=== PATIENT | male | born 1965 | race Caucasian/White ===

== ENCOUNTER 2021-01-10 04:39 | Emergency (ER) | payer BC, OTHER ==
[2021-01-10] MEDS ORDERED: Ketorolac 15 MG/ML SDV IM ONE (05:20)
--- NOTE | 2021-01-10 05:22 | EDM.PDOC ---
ED HPI GENERAL MEDICAL PROBLEM - General Chief Complaint: General Stated Complaint: BODY ACHE/FEVER/CHILLS/HEADACHE Time Seen by Provider: 01/10/21 05:00 Source of Information: Reports: Patient History Limitations: Reports: No Limitations - History of Present Illness INITIAL COMMENTS - FREE TEXT/NARRATIVE: Patient is a 55-year-old male presenting to the emergency room with a chief complaint of body aches. Patient states he is otherwise healthy and takes no medications on a regular basis. States he has been sick since Monday. Reports symptoms of low-grade fevers and chills, body aches, sore/scratchy throat, dry cough, headache. Has been using Tylenol and ibuprofen with only some relief. He has not had the Covid or flu vaccine. Patient states he is not having any d ifficulty breathing, shortness of breath, chest pain. He comes in this morning because he feels like is not getting any better. He states his body aches are more severe this morning and "feels like he got run over by a truck". Generalized Pain Score (Numeric/FACES): 5 - Related Data Allergies Allergy/AdvReac Type Severity Reaction Status Date / Time No Known Allergies Allergy Verified 01/10/21 04:51 Home Meds: Home Meds . [No Known Home Meds] 01/10/21 [History] Past Medical History - Past Health History Medical/Surgical History: Denies Medical/Surgical History Social & Family History - Tobacco Use Tobacco Use Status *Q: Never Tobacco User Second Hand Smoke Exposure: No - Caffeine Use Caffeine Use: Reports: Coffee, Energy Drinks - Recreational Drug Use Recreational Drug Use: No ED ROS GENERAL - Review of Systems Review Of Systems: See Below Free Text/Narrative/Comment: In addition to that documented in the HPI above, the additional ROS was obtain ed: Constitutional: Per HPI Eyes: Denies vision changes ENMT: Per HPI CV: Denies chest pain Resp: Denies SOB GI: Denies vomiting or diarrhea : Denies painful urination MSK: Denies recent trauma Skin: Denies new rashes Neuro: Denies new numbness or tingling or weakness Endocrine: Denies unexpected weight loss Heme: Denies bleeding disorders ED EXAM, GENERAL - Physical Exam Exam: See Below Free Text/Narrative:: I have reviewed the triage vital signs Const: Well nourished, well developed, appears stated age Eyes: Pupils Equal and reactive to light bilaterally, no conjunctival injection HENT: No signs of trauma or swelling, Neck supple without meningismus CV: Regular Rate Rhythm, Warm, well-perfused extremities RESP: Unlabored respiratory effort MSK: No gross deformities appreciated Skin: Warm, dry. No rashes Neuro: Alert, salary and wage administrator II-XII grossly intact. Sensation and motor function of extremities grossly intact. Psych: Appropriate mood and affect. Course - Vital Signs Last Recorded V/S: Last Vital Signs Temp 36.2 C 01/10/21 04:48 Pulse 99 01/10/21 04:48 Resp 18 01/10/21 04:48 BP 143/87 H 01/10/21 04:48 Pulse Ox 98 01/10/21 04:48 - Orders/Labs/Meds Labs: Laboratory Tests 01/10/21 01/10/21 01/10/21 Range/Units 04:45 05:27 05:27 WBC 6.46 (4.23-9.07) K/mm3 RBC 4.67 (4.63-6.08) M/mm3 Hgb 14.5 (13.7-17.5) gm/dl Hct 42.2 (40.1-51.0) % MCV 90.4 (79.0-92.2) fl MCH 31.0 (25.7-32.2) pg MCHC 34.4 (32.2-35.5) g/dl RDW Std Deviation 41.9 (35.1-43.9) fL Plt Count 244 (163-337) K/mm3 MPV 10.3 (9.4-12.3) fl Neut % (Auto) 72.0 H (34.0-67.9) % Lymph % (Auto) 14.1 L (21.8-53.1) % Andrew % (Auto) 10.5 (5.3-12.2) % Eos % (Auto) 2.9 (0.8-7.0) Baso % (Auto) 0.3 (0.1-1.2) % Neut # (Auto) 4.65 (1.78-5.38) K/mm3 Lymph # (Auto) 0.91 L (1.32-3.57) K/mm3 Andrew # (Auto) 0.68 (0.30-0.82) K/mm3 Eos # (Auto) 0.19 (0.04-0.54) K/mm3 Baso # (Auto) 0.02 (0.01-0.08) K/mm3 Sodium 138 (136-145) mEq/L Potassium 3.8 (3.5-5.1) mEq/L Chloride 103 (98-107) mEq/L Carbon Dioxide 26 (21-32) mEq/L Anion Gap 12.8 (5-15) BUN 15 (7-18) mg/dL Creatinine 0.8 (0.7-1.3) mg/dL Est Cr Clr Drug Dosing 115.86 mL/min Estimated GFR (MDRD) > 60 (>60) mL/min BUN/Creatinine Ratio 18.8 H (14-18) Glucose 107 H (70-99) mg/dL Calcium 8.6 (8.5-10.1) mg/dL Total Bilirubin 0.4 (0.2-1.0) mg/dL AST 24 (15-37) U/L ALT 55 (16-63) U/L Alkaline Phosphatase 69 (46-116) U/L C-Reactive Protein < 0.2 (<1.0) mg/dL Total Protein 6.6 (6.4-8.2) g/dl Albumin 3.7 (3.4-5.0) g/dl Globulin 2.9 gm/dL Albumin/Globulin Ratio 1.3 (1-2) Influenza Type A RNA Negative (NEGATIVE) Influenza Type B RNA Negative (NEGATIVE) SARS-CoV-2 RNA (NAVYA) Positive H (NEGATIVE) Meds: Medications Discontinued Medications Generic Name Dose Route Start Last Admin Trade Name Freq PRN Reason Stop Dose Admin Ketorolac Tromethamine 15 mg 01/10/21 05:20 01/10/21 05:27 Ketorolac 15 Mg/Ml Sdv IM 01/10/21 05:21 15 mg ONETIME ONE Administration Departure - Departure Time of Disposition: 06:11 Disposition: Home, Self-Care 01 Clinical Impression: COVID-19 - Discharge Information Instructions: COVID-19 Frequently Asked Questions Referrals: PCP,None [Primary Care Provider] - Forms: ED Department Discharge Sepsis Event Note (ED) - Focused Exam Vital Signs: Vital Signs Temp Pulse Resp BP Pulse Ox 01/10/21 04:48 36.2 C 99 18 143/87 H 98 - Assessment/Plan Assessment:: Patient is a 55-year-old male with COVID-19. He has not experiencing any respiratory symptoms and is demonstrating normal vital signs. He is not el igible for monoclonal antibody infusion. We did discuss appropriate return precautions and symptom control at home. He agrees with current plan of care. Discharged in stable condition.
[2021-01-10 05:51] LABS: CORONAVIRUS COVID-19 NAA POSITIVE (NEGATIVE)
== END 2021-01-10 06:24 | disposition home or self-care (01) ==
LOC: JD.ED 04:39
DX: U07.1 COVID-19 (principal)
CPT/HCPCS: 0240U; 36415; 80053; 85025; 86140; 96372; 99284; J1885

== ENCOUNTER 2023-05-30 02:19 | Emergency (ER) | payer SELFPAY ==
[2023-05-30] MEDS: LORazepam 2 MG/ML SDV IVPUSH ONE (03:15)
[2023-05-30] MEDS: Lactated Ringers 1,000 ML IV SCH (03:15)
[2023-05-30] MEDS: Glucagon,Human Recombinant 1 MG Vial IVPUSH ONE (03:15)
[2023-05-30] MEDS: Sodium Chloride 0.9% 10 ML Syringe FLUSH PRN (03:16)
== END 2023-05-30 04:32 | disposition home or self-care (01) ==
LOC: JD.ED 02:19
DX: T18.128A Food in esophagus causing other injury, initial encounter (principal); K22.2 Esophageal obstruction; W44.8XXA Other foreign body entering into or through a natural orifice, initial encounter
CPT/HCPCS: 71046; 96374; 96375; 99284; J1610; J2060; J3490; J7120